=== PATIENT | male | born 1955 | race Caucasian/White ===

== ENCOUNTER 2016-09-29 18:42 | Emergency (ER) | payer BC ==
[~2016-09-29 18:42] MED LIST: ADVAIR INH; ALEVE220 MG PO; AMIT25 PO; ANDROGEL5 TOP; ASA5GR PO; ASAB PO; ASABAYER PO; BENADRYL 50 MG50 MG PO; BUM2 PO; CELEBREX2 PO; COREG6 PO; COZAAR100 MG PO; DORYX100 MG PO; DULERA 200 MCG/13 GM INH; FIBERCON PO; FISH OIL1200 MG PO; FLONASE NAS; IVVIBRA; KDUR20 PO; KLONO2 PO; KLONO5 PO; KLONOPIN WAF1 MG PO; KLOR-CON M2020 MEQ PO; KLOR-CON20 MEQ PO; L40 PO; LAMICTAL200 MG PO; LAMIS15 TOP; LEVAQUIN750 MG PO; MEDROL4 PO; METAMUCIL CAN7 OZ PO; MIRAPEX1 MG PO; MIRAPEX250 PO; MONODOX100 MG PO; MULTIPLE VIT PO; MULTIVITAMI1 PO; NABUMETONE750 MG PO; NORCO1 TAB PO; NORV10 PO; PEP20 PO; PRAVAC PO; PROAIR HFA INH; PROVHFA INH; QNASL8.7 GM NAS; QVAR 80 MCG80 MCG INH; RELA5 PO; SINGULAIR1 PO; SPIRIVA INH; TYLENOL 8 HR650 MG PO; VENTOLIN HFA INH; VIB100 PO; VITE1000 PO; VYVANSE30 MG OR; VYVANSE60 MG OR; VYVANSE60 MG PO; Z100 PO
[2016-09-29 19:38] LABS: ASCORBIC ACID (UR NOT ORDER) NEG (NEG); BILIRUBIN, URINE NEGATIVE (NEG); ER URINALYSIS TAT 0 Hrs 21 Mins; KETONE, URINE NEGATIVE (NEG); LEUKOCYTE ESTERASE(NOT OR NEG (NEG); NITRITE (URINE) NEG (NEG); WBC (NOT ORDERED) (RFLEX) < 1 (0-5)
[2016-09-29 19:43] LABS: BUN (BLOOD UREA NITROGEN) 20 MG/DL (6-23); CALCIUM, SERUM 8.6 MG/DL (8.5-10.4); CHEST PAIN PROFILE TAT 0 Hrs 25 Mins; CHLORIDE, SERUM 104 MMOL/L (96-112); CO2 (CARBON DIOXIDE) 28 MMOL/L (24-34); CREATININE 1.07 MG/DL (0.70-1.30); GFR AFRICAN AMERICAN 86 ML/MIN (>=60); GFR NON AFRICAN AMERICAN 75 ML/MIN (>=60); GLUCOSE, SERUM 108 MG/DL (60-99); SODIUM, SERUM 138 MMOL/L (135-148); TROPONIN I <0.02 NG/ML (<0.05)
[2016-09-29 19:44] LABS: POTASSIUM, SERUM 4.9 MMOL/L (3.5-5.3)
[2016-09-29 20:17] LABS: BASOPHILS 0.5 %; BASOPHILS ABSOLUTE 0.03 10/3/uL (0.0-0.16); EOSINOPHILS 4.4 %; EOSINOPHILS ABSOLUTE 0.29 10/3/uL (0.0-0.53); ER CBC TAT 0 Hrs 06 MinsNP; HEMATOCRIT 51.3 % (40.0-51.0); HEMOGLOBIN 17.3 g/dL (13.6-17.8); IMMATURE GRANULOCYTES 0.2 %; IMMATURE GRANULOCYTES ABSOLUTE 0.01 10/3/uL (0.0-0.11); LYMPHOCYTES 21.7 %; LYMPHOCYTES ABSOLUTE 1.43 10/3/uL (0.67-4.30); MANUAL DIFF NO %; MEAN CORPUS HGB CONC 33.7 g/dL (32.0-36.0); MEAN CORPUSCULAR HEMOGLOB 31.8 pg (26.0-34.0); MEAN CORPUSCULAR VOLUME 94.3 fL (80-100); MEAN PLATELET VOLUME 9.2 fL (9.2-13.0); MONOCYTES 8.8 %; MONOCYTES ABSOLUTE 0.58 10/3/uL (0.21-1.20); NEUTROPHILS 64.4 %; NEUTROPHILS ABSOLUTE 4.24 10/3/uL (2.02-8.40); PLATELET COUNT 195 10/3/uL (150-400); RBC DISTRIBUTION WIDTH 15.4 % (12.0-16.0); RED CELL COUNT 5.44 10/6/uL (4.7-6.1); WHITE BLOOD CELLS 6.6 10/3/uL (4.5-10.5)
[2016-09-29 20:25] LABS: INTERNATIONAL NORMAL RATI 1.1 UNITS (-)
[2016-09-29 20:26] LABS: PARTIAL THROMBO TIME 30.5 SEC (22.5-37.2)
[2016-09-29 20:32] LABS: PROTIME (NOT ORD) 14.5 SEC (12.0-14.5)
[2016-09-29 20:33] LABS: D-DIMER QUANTITATIVE < 0.27 ug/mLFEU (< 0.50)
[2016-09-29 22:38] LABS: TROPONIN I <0.02 NG/ML (<0.05); ULTRASENSITIVE TSH 0.855 MCIU/ML (0.358-3.740)
== END 2016-09-29 23:51 | disposition home or self-care (01) ==
LOC: ER 18:42
PROVIDERS: Nurse Practitioner; Nurse Practitioner Family
DX: R41.82 Altered mental status, unspecified (principal); R26.9 Unspecified abnormalities of gait and mobility; J45.909 Unspecified asthma, uncomplicated; I10 Essential (primary) hypertension; F32.9 Major depressive disorder, single episode, unspecified; F41.9 Anxiety disorder, unspecified; Z85.820 Personal history of malignant melanoma of skin; Z87.01 Personal history of pneumonia (recurrent); Z91.041 Radiographic dye allergy status; Z79.899 Other long term (current) drug therapy; Z79.82 Long term (current) use of aspirin
CPT/HCPCS: 70450; 71010; 80048; 81001; 83735; 83880; 84443; 84484; 85025; 85379; 85610; 85730; 93005; 99285